=== PATIENT | male | born 1990 | race Caucasian/White ===

== ENCOUNTER → 2016-09-14 | Outpatient (CLI) | payer OTHER ==
[~2016-09-14] MED LIST: ADVIL PM CAPLE1 EACH PO; ALEVE220 MG PO; AUGMENTIN 875875 M1 PO; BAYER MIGRAINE1 EACH PO; BUPROPION HCL150 M1; COLACE100 MG PO; CYMBALTA30 MG PO; CYMBALTA60 MG PO; ENDOCET 5-3251 EACH PO; EXCEDRIN CAPLE1 EACH PO; FLEXERIL PO; GABAPENTIN600 M1 PO; GRALISE600 MG PO; HYDROCODON-ACE1 EAC7 PO; HYDROCODON-ACE1 EAC8 PO; HYDROCODONE-AP1 EAC6 PO; HYDROCODONE-APA1 TA1 PO; IBUPROFEN 600600 M1 PO; IBUPROFEN 800800 M1 PO; MELATONIN3 MG PO; NEURONTIN 300300 M1 PO; NEURONTIN600 MG PO; NORCO 10-325 T1 EACH PO; NORCO 5-325 TA1 EACH PO; OXYCODONE-APAP1 EAC6 PO; PAXIL10 MG; PERCOCET 10-321 EACH PO; PERCOCET 5-3251 EACH PO; ROBAXIN 750 MG750 M1 PO; SENOKOT-S1 TA1 PO; SULINDAC 150 M150 MG PO; TOPAMAX 25 MG T25 MG; TUMS PO
== END ==
LOC: MRI 13:21
DX: M51.26 Other intervertebral disc displacement, lumbar region (principal); M54.2 Cervicalgia; M54.16 Radiculopathy, lumbar region; R51 Headache

== ENCOUNTER → 2016-12-01 | Outpatient (CLI) | payer OTHER | LOC: MRI 09:41 | DX: M51.27 Other intervertebral disc displacement, lumbosacral region (principal); M79.604 Pain in right leg ==

== ENCOUNTER → 2018-01-04 | Outpatient (CLI) | payer OTHER | LOC: MRI 13:17 | DX: G43.009 Migraine without aura, not intractable, without status migrainosus (principal) ==